=== PATIENT | male | born 1970 | race Caucasian/White ===

== ENCOUNTER 2017-02-28 00:26 | Emergency (ER) ==
[2017-02-28 00:32] VITALS: BP 137/88; TEMP 97.9; BMI 29.0
[2017-02-28] MEDS ORDERED: TYLENOL PO STA (00:48)
--- NOTE | 2017-02-28 00:51 | ED.PDOC ---
General ED Provider: Dr. STEPHANIE SANTAMARIA Chief Complaint: Cough Stated Complaint: Patient is a 46 year old male who has a history of mitral valve prolapse who comes to the ER with a one week history of cough, conjestion and feeling feverish. Took over the couter medications which has not helped. Admits to smoking 1 1/2 ppd. Time Seen by Physician: 00:35 Mode of Arrival: Walk-In Information Source: Patient Exam Limitations: No limitations Primary Care Provider: TL VALIENTE Nursing and Triage Documentation Reviewed and Agree: Yes Review of Systems - Review Of Systems Constitutional: Reports: Chills, Fever, Sweats Eyes: Reports: No symptoms Ears, Nose, Mouth, Throat: Reports: Nose discharge. Denies: Ear pain, Ear discharge, Nose pain, Epistaxis, Mouth pain, Loose teeth, Throat pain, Throat swelling Respiratory: Reports: Cough, Short of air Cardiac: Denies: Chest pain, Edema, Irregular heart rate, Lightheadedness, Palpitations, Syncope GI: Reports: No symptoms : Reports: No symptoms Musculoskeletal: Reports: No symptoms Skin: Reports: No symptoms Neurological: Reports: Anxiety Endocrine: Reports: Excessive sweating All Other Systems: Reviewed and Negative Past Medical History - Past Medical History Previously Healthy: Yes Endocrine: Reports: None Cardiovascular: Reports: Other (Mitral valve prolapse) Respiratory: Reports: None Hematological: Reports: None Gastrointestinal: Reports: None Genitourinary: Reports: None Neuro/Psych: Reports: None Musculoskeletal: Reports: Back Pain Cancer: Reports: None - Surgical History General Surgical History: Reports: None - Family History Family History: Reports: None - Social History Smoking Status: Current every day smoker Hx Substance Use: No Alcohol Screening: Occasionally - Immunizations Tetanus Shot up to Date: Yes Physical Exam - Physical Exam Appearance: Ill-appearing Ill-appearing: Moderate Pain Distress: Mild Eyes: SPEEDY, EOMI, Conjunctiva clear Neck: Supple Respiratory: Breath sounds diminished Cardiovascular: RRR, Pulses normal, No rub, No murmur Skin: Warm, Dry, Normal color Neurological: Sensation intact, Motor intact, Reflexes intact, Cranial nerves intact, Alert, Oriented Psychiatric: Anxious Interpretation - Radiology Interpretation Radiology Interpretation By: ED Physician Radiology Results: Negative Exam Interpreted: CXR Critical Care Note - Critical Care Note Total Time (mins): 0 Course - Course Hematology/Chemistry: 02/28/17 01:01 02/28/17 01:01 Orders, Labs, Meds: Lab Review 02/28/17 02/28/17 02/28/17 00:51 01:01 01:01 WBC 13.22 H RBC 4.79 Hgb 15.1 Hct 42.6 MCV 88.9 MCH 31.5 H MCHC 35.4 RDW Coeff of Velma 12.6 Plt Count 268 Immature Gran % (Auto) 1.1 Neut % (Auto) 53.4 Lymph % (Auto) 34.6 [place] % (Auto) 6.7 Eos % (Auto) 3.6 Baso % (Auto) 0.6 Immature Gran # (Auto) 0.2 Neut # 7.1 H Lymph # 4.6 H [place] # 0.9 Eos # 0.5 Baso # 0.1 Sodium 140 Potassium 4.0 Chloride 105 Carbon Dioxide 23 Anion Gap 16.0 BUN 13 Creatinine 0.98 Estimated GFR (MDRD) 82.00 BUN/Creatinine Ratio 13.26 Glucose 85 Calcium 9.7 Total Bilirubin 0.28 AST 23 ALT 34 Alkaline Phosphatase 85 Total Protein 7.1 Albumin 3.9 Globulin 3.2 Albumin/Globulin Ratio 1.22 Influenza A (Rapid) Negative Influenza B (Rapid) Negative Orders Category Date Time Status NEBULIZER TREATMENT Stat CARDIO 02/28/17 00:56 Completed CBC W/ AUTO DIFF Stat LAB 02/28/17 01:01 Completed COMPREHENSIVE METABOLIC PANEL Stat LAB 02/28/17 01:01 Completed FLU A & B RAPID TEST [RAPID FLU A/B] Stat LAB 02/28/17 00:51 Completed Acetaminophen [Tylenol] MEDS 02/28/17 00:48 Discontinued 650 mg PO ONCE STA Benzonatate [Tessalon Perles] MEDS 02/28/17 01:05 Discontinued 100 mg PO ONCE STA Ipratropium/Albuterol Neb [Duoneb] MEDS 02/28/17 00:55 Discontinued 1 vial NEB ONCE STA Methylprednisolone Sod Succ/Pf [Solu-Medrol 125 mg] MEDS 02/28/17 00:55 Discontinued 125 mg IM ONCE STA CHEST, 2 VIEWS PA & LAT Stat RADS 02/28/17 00:48 Completed Medications Discontinued Medications Generic Name Dose Route Start Last Admin Trade Name Freq PRN Reason Stop Dose Admin Acetaminophen 650 mg 02/28/17 00:48 02/28/17 01:05 Tylenol PO 02/28/17 00:49 650 mg ONCE STA Administration Albuterol/Ipratropium 1 vial 02/28/17 00:55 02/28/17 01:11 Duoneb NEB 02/28/17 00:56 1 vial ONCE STA Administration Benzonatate 100 mg 02/28/17 01:05 02/28/17 01:09 Tessalon Perles PO 02/28/17 01:06 100 mg ONCE STA Administration Methylprednisolone Sodium Succinate 125 mg 02/28/17 00:55 02/28/17 01:05 Solu-Medrol 125 Mg IM 02/28/17 00:56 Not Given ONCE STA Vital Signs: Temp Pulse Resp BP Pulse Ox 02/28/17 00:26 97.9 F 70 18 137/88 97 Departure - Departure Time of Disposition: 01:20 Disposition: HOME SELF-CARE Discharge Problem: URI (upper respiratory infection) Qualifiers: URI type: unspecified viral URI Qualified Code(s): J06.9 - Acute upper respiratory infection, unspecified Instructions: Viral Syndrome (ED) Condition: Fair Pt referred to PMD for follow-up: No Additional Instructions: Quit smoking Follow up with PCP in 3 days take medications as prescribed. Prescriptions: Albuterol Sulfate [Proair Hfa] 2 puff IH Q6H PRN #1 puff PRN Reason: shortness of breath Azithromycin [Zithromax] 250 mg PO DIRECTED #6 tablet Benzonatate [Tessalon Perles] 100 mg PO TID PRN #20 capsule PRN Reason: Cold Symptons Methylprednisolone [Medrol Dosepak] 4 mg PO DIRECTED #1 pkg Allergies/Adverse Reactions: Allergies codeine Adverse Reaction (Verified 02/28/17 00:34) Home Medications: Ambulatory Orders Albuterol Sulfate [Proair Hfa] 2 puff IH Q6H PRN #1 puff 02/28/17 Azithromycin [Zithromax] 250 mg PO DIRECTED #6 tablet 02/28/17 Benzonatate [Tessalon Perles] 100 mg PO TID PRN #20 capsule 02/28/17 Methylprednisolone [Medrol Dosepak] 4 mg PO DIRECTED #1 pkg 02/28/17 Disposition Discussed With: Patient, Family
[2017-02-28] MEDS ORDERED: DUONEB NEB STA (00:55)
[2017-02-28] MEDS ORDERED: SOLU-MEDROL 125 MG IM STA (00:55)
[2017-02-28 01:02] LABS: BASOPHILS # (AUTO) 0.1 K/uL (0-0.2); BASOPHILS % (AUTO) 0.6 % (0.0-3.0); EOSINOPHILS # (AUTO) 0.5 K/ul (0.0-0.7); EOSINOPHILS % (AUTO) 3.6 % (0.0-7.0); HEMATOCRIT 42.6 % (42.0-52.0); HEMOGLOBIN 15.1 g/dl (14.0-18.0); IMMATURE GRANULOCYTE % (AUTO) 1.1 % (0.0-5.0); LYMPHOCYTES # (AUTO) 4.6 K/uL (0.60-3.4); LYMPHOCYTES % (AUTO) 34.6 (10.0-50.0); MEAN CORPUSCULAR HEMOGLOBIN 31.5 pg (27.0-31.0); MEAN CORPUSCULAR HGB CONC 35.4 (31.8-35.4); MEAN CORPUSCULAR VOLUME 88.9 fl (80.0-94.0); MONOCYTES # (AUTO) 0.9 K/uL (0.4-2.0); MONOCYTES % (AUTO) 6.7 (0-10); NEUTROPHILS # (AUTO) 7.1 K/ul (2.0-6.9); NEUTROPHILS % (AUTO) 53.4; PLATELET COUNT 268 10^3/uL (140-440); RED BLOOD COUNT 4.79 10^6/ul (4.70-6.10); WHITE BLOOD COUNT 13.22 K/ul (4.2-10.2)
[2017-02-28] MEDS ORDERED: TESSALON PERLES PO STA (01:05)
--- NOTE | 2017-02-28 01:13 | DI ---
EXAM: Chest, two-view 02/28/2017 HISTORY: Cough COMPARISON: 06/03/2016 FINDINGS / IMPRESSION: Cardiomediastinal countours appear stable. There is no focal pulmonary conso lidation. No pleural effusion or pneumothorax. No acute cardiopulmonary process.
[2017-02-28 01:18] LABS: FLU INTERNAL QC INTERNAL QC VALID; RAPID FLU A NEGATIVE (NEGATIVE); RAPID FLU B NEGATIVE (NEGATIVE)
[2017-02-28 01:21] LABS: ALBUMIN 3.9 g/dL (3.4-5.0); ALBUMIN/GLOBULIN RATIO 1.22; BILIRUBIN,TOTAL 0.28 mg/dL (0.00-1.20); BUN/CREATININE RATIO 13.26; CALCIUM 9.7 mg/dL (8.2-10.2); CREATININE 0.98 mg/dL (0.60-1.10); TOTAL PROTEIN 7.1 g/dL (6.4-8.2)
== END 2017-02-28 01:23 | disposition home or self-care (01) ==
LOC: ED 00:26
DX: J06.9 Acute upper respiratory infection, unspecified (principal); F17.210 Nicotine dependence, cigarettes, uncomplicated
CPT/HCPCS: 36415; 80053; 85025; 87804; 94640; 99283

== ENCOUNTER 2017-05-02 12:46 | Outpatient (CLI) ==
[2017-05-02 12:58] LABS: BASOPHILS # (AUTO) 0.1 K/uL (0-0.2); BASOPHILS % (AUTO) 0.3 % (0.0-3.0); EOSINOPHILS # (AUTO) 0.3 K/ul (0.0-0.7); EOSINOPHILS % (AUTO) 2.2 % (0.0-7.0); HEMATOCRIT 43.6 % (42.0-52.0); HEMOGLOBIN 15.3 g/dl (14.0-18.0); IMMATURE GRANULOCYTE % (AUTO) 0.7 % (0.0-5.0); LYMPHOCYTES # (AUTO) 2.9 K/uL (0.60-3.4); LYMPHOCYTES % (AUTO) 19.4 (10.0-50.0); MEAN CORPUSCULAR HEMOGLOBIN 30.8 pg (27.0-31.0); MEAN CORPUSCULAR HGB CONC 35.1 (31.8-35.4); MEAN CORPUSCULAR VOLUME 87.9 fl (80.0-94.0); MONOCYTES # (AUTO) 0.9 K/uL (0.4-2.0); MONOCYTES % (AUTO) 6.3 (0-10); NEUTROPHILS # (AUTO) 10.4 K/ul (2.0-6.9); NEUTROPHILS % (AUTO) 71.1; PLATELET COUNT 236 10^3/uL (140-440); RED BLOOD COUNT 4.96 10^6/ul (4.70-6.10); WHITE BLOOD COUNT 14.69 K/ul (4.2-10.2)
[2017-05-02 13:36] LABS: ALBUMIN 3.6 g/dL (3.4-5.0); ALBUMIN/GLOBULIN RATIO 1.09; ANION GAP 12.8; BILIRUBIN,TOTAL 0.51 mg/dL (0.00-1.20); BUN/CREATININE RATIO 11.22; CREATININE 0.98 mg/dL (0.60-1.10); POTASSIUM 3.8 mmol/L (3.5-5.1); TOTAL PROTEIN 6.9 g/dL (6.4-8.2)
[2017-05-02 13:37] LABS: CHOL/HDL RATIO 9.3 (4.5-6.4)
--- NOTE | 2017-05-02 13:37 | CT ---
EXAM: CT cervical spine without contrast. HISTORY: Cervical radiculopathy COMPARISON: CT cervical spine 06/03/2017 TECHNIQUE: Serial axial images of the cervical spine were obtained from the skull base through the l connor apices without contrast. These were viewed in multiple planes. FINDINGS: Vertebral bodies demonstrate no acute compression fracture or subluxation. Facets and pos terior processes are unremarkable. The odontoid process is unremarkable. The C1 ring is intact. Th ere is no central or neural foraminal narrowing identified. The soft tissues are unremarkable with a pical emphysematous disease. IMPRESSION: 1. No acute compression fracture or subluxation. 2. There is no central or neural foraminal narrowing. If further evaluation is clinically indicated , MRI may be obtained. 3. Mild apical emphysematous disease.
== END 2017-05-02 12:47 | disposition home or self-care (01) ==
LOC: RAD 12:46
PROVIDERS: ATTEND Emergency Medicine
DX: M54.12 Radiculopathy, cervical region (principal); J06.9 Acute upper respiratory infection, unspecified
CPT/HCPCS: 36415; 80053; 80061; 84443; 85025

== ENCOUNTER 2017-05-03 12:38 | Outpatient (CLI) ==
--- NOTE | 2017-05-03 13:10 | DI ---
Exam: Two x-rays of the chest. Comparison: 02/28/2017. Reason for exam: Acute upper respiratory infection unspecified. FINDINGS: No pneumothorax, pleural effusion, or focal consolidation. The cardiac silhouette is not enlarged. The imaged osseous structures appear grossly unremarkable without acute fracture. Impression: No acute cardiopulmonary process.
--- NOTE | 2017-05-03 13:15 | CT ---
Exam: CT of the thoracic spine without intravenous contrast. Comparison: MRI performed on 06/14/2016. Reason for exam: Pain in thoracic spine. FINDINGS: No acute fracture or listhesis in the thoracic spine. Similar appearing minimal compressi on deformities are seen in the T3, T4, and T5 vertebral bodies not significantly changed from previou s imaging. There is a normal appearing thoracic kyphotic curve. Emphysematous changes are seen in th e lung parenchyma with an apical predominance. There is mild atelectasis in the partially imaged elizabeth g bases. Impression: 1. No acute fracture or listhesis in the thoracic spine. 2. Emphysematous disease.
== END 2017-05-03 12:39 | disposition home or self-care (01) ==
LOC: RAD 12:38
PROVIDERS: ATTEND Emergency Medicine
DX: J06.9 Acute upper respiratory infection, unspecified (principal); M54.6 Pain in thoracic spine; G89.29 Other chronic pain

== ENCOUNTER 2017-07-26 05:33 | Observation (INO) ==
[2017-07-26] MEDS ORDERED: ASPIRIN EC PO STA (06:24)
--- NOTE | 2017-07-26 06:24 | CT ---
EXAM: CT scan brain without contrast HISTORY: Facial numbness COMPARISON: CT scan brain 06/03/2016 FINDINGS: Contiguous axial images obtained from the skull base to the convexities without contrast u tilizing 5-mm collimation. Sagittal and coronal reconstructions were imaged and reviewed. The ventri cles and CSF spaces are within normal limits. There is no evidence of acute territorial infarction, intracranial hemorrhage or mass. No abnormal extra-axial fluid collections identified.. There is ch ronic deformity of the right lamina papyracea. IMPRESSION: No acute intracranial findings.
[2017-07-26] MEDS ORDERED: ASPIRIN EC ONE (06:25)
--- NOTE | 2017-07-26 06:26 | ED.PDOC ---
General Stated Complaint: my chest feels heavy and the left side of my face was numb-- its better now Time Seen by Physician: 05:40 Mode of Arrival: Walk-In Information Source: Patient Exam Limitations: No limitations Nursing and Triage Documentation Reviewed and Agree: Yes Reviewed sepsis parameters & appropriate labs ordered?: Yes System Inflammatory Response Syndrome: Not Applicable <MARIOMAGO - Last Filed: 07/26/17 06:59> <MAGO BALLESTEROS - Last Filed: 07/26/17 09:05> ED Provider: Dr. MAGO BALLESTEROS Chief Complaint: Chest Pain Primary Care Provider: TL VALIENTE Sepsis Protocol: For patient's 13 years and over: Temp is 96.8 and below OR 101 and greater Pulse >90 BPM Resp >20/minute Acutely Altered Mental Status Are patient's symptoms suggestive of a new infection, such as: -Pneumonia -Skin, Soft Tissue -Endocarditis -UTI -Bone, Joint Infection -Implantable Device -Acute Abdominal Infection -Wound Infection -Meningitis -Blood Stream Catheter Infection -Unknown Cardiovascular Complaint Exam - Chest Pain Complaint/Exam Onset: Sudden Duration: one hour Symptoms Are: Resolved Initial Severity: Mild Current Severity: Mild Location: Reports: Left anterior Character: Reports: Dull, Aching, Heaviness, Pressure Aggravating: Reports: None Alleviating: Reports: Spontaneous resolution Associated Signs and Symptoms: Reports: Dizziness History of Healthcare-Acquired Pneumonia: Reports: No AMI/ACS Risk Factors: Reports: Smoking, Dyslipidemia Prior Care for this Complaint: No Recent Stress Test: No Recent Echo/LV Function: No JVD Present: No Subcutaneous Emphysema Present: No Diminshed Breath Sounds: No Reproducible Chest Wall Pain: No Bilateral Pulses Present: Yes Unequal Pulses Noted: No If Risk Factors for PE Consider: Chest CT with contrast If Risk Factors for TAD Consider: Chest CT with contrast Care and Dx Studies Discussed With: Family Cement Side Laster Consulted: No Differential Diagnoses: Acute GA, ACS, Aortic Aneurysm, GI Diseasae, Pulmonary Embolism Quality Indicators For Acute GA or Cardiac Chest Pain: EKG in 10min., ASA if indicated Quality Indicator For Non-Traumatic Chest Pain/Syncope: EKG Performed <MAGO MARTIN - Last Filed: 07/26/17 06:59> Review of Systems - Review Of Systems Constitutional: Reports: No symptoms Eyes: Reports: No symptoms Ears, Nose, Mouth, Throat: Reports: No symptoms Respiratory: Reports: No symptoms Cardiac: Reports: Chest pain GI: Reports: No symptoms : Reports: No symptoms Musculoskeletal: Reports: No symptoms Skin: Reports: No symptoms Neurological: Reports: Numbness Endocrine: Reports: No symptoms Hematologic/Lymphatic: Reports: No symptoms All Other Systems: Reviewed and Negative <MAGO MARTIN Filed: 07/26/17 06:59> Past Medical History - Past Medical History Previously Healthy: Yes Endocrine: Reports: None Cardiovascular: Reports: Other (Mitral valve prolapse) Respiratory: Reports: None Hematological: Reports: None Gastrointestinal: Reports: None Genitourinary: Reports: None Neuro/Psych: Reports: None Musculoskeletal: Reports: Back Pain Cancer: Reports: None - Surgical History General Surgical History: Reports: None - Family History Family History: Reports: None - Social History Smoking Status: Current every day smoker, Heavy tobacco smoker Hx Substance Use: Yes (USES CANNIBUS) Alcohol Screening: Occasionally Lives: With family - Immunizations Tetanus Shot up to Date: Yes <MAGO MARTIN Filed: 07/26/17 06:59> Physical Exam - Physical Exam Appearance: Well-appearing, No pain distress, Well-nourished Pain Distress: Mild Eyes: SPEEDY, EOMI, Conjunctiva clear ENT: Ears normal, Nose normal, Oropharynx normal Neck: Supple Respiratory: Airway patent, Breath sounds clear, Breath sounds equal, Respirations nonlabored Cardiovascular: RRR GI/: Soft, Nontender, No masses, Bowel sounds normal, No Organomegaly Musculoskeletal: Normal strength Skin: Warm, Dry, Normal color Neurological: Sensation intact, Motor intact, Reflexes intact, Cranial nerves intact, Alert, Oriented Psychiatric: Affect appropriate, Mood appropriate, Anxious <MAGO MARTIN Last Filed: 07/26/17 06:59> Interpretation - EKG Interpretation Time of EKG #1: 05:35 Rate: Normal Rhythm: Sinus Ectopy: None, PVCs [place]: NL ST Segment: Normal Interpretation: sinus rythym with pvcs <MAGO MARTIN Last Filed: 07/26/17 06:59> Re-Evaluation - Re-Evaluation Time of Re-Evaluation: 08:10 (No further facial paresthesias) Status: Unchanged (Still feeling a fullness over entire anterior chest w/o radiation/ states has felt similar senstation after experiencing chest fluttering and palpitations in past.) Vital Signs Stable: Yes Pain Level: 3/10 Appearance: NAD Lungs: Clear Skin: Warm and Dry Neuro: Alert and Oriented X3 CV: Other (Monitor reveal NSR with multiple PVCs unifocal some bigemny) <MAGO BALLESTEROS - Last Filed: 07/26/17 09:05> Physician Notification - Case Discussed Physician Notified: dr ballesteros Time of Notification: 07:00 <MAGO MARTIN - Last Filed: 07/26/17 06:59> Course - Course Hematology/Chemistry: 07/26/17 05:45 07/26/17 05:49 <MAGO MARTIN - Last Filed: 07/26/17 06:59> - Course Hematology/Chemistry: 07/26/17 05:45 07/26/17 05:49 <MAGO BALLESTEROS - Last Filed: 07/26/17 09:05> - Course Orders, Labs, Meds: Lab Review 07/26/17 07/26/17 07/26/17 05:45 05:49 06:00 WBC 14.51 H RBC 4.93 Hgb 15.5 Hct 43.4 MCV 88.0 MCH 31.4 H MCHC 35.7 H RDW Coeff of Velma 12.3 Plt Count 250 Immature Gran % (Auto) 0.7 Neut % (Auto) 62.0 Lymph % (Auto) 26.7 [place] % (Auto) 6.8 Eos % (Auto) 3.2 Baso % (Auto) 0.6 Immature Gran # (Auto) 0.1 Neut # 9.0 H Lymph # 3.9 H [place] # 1.0 Eos # 0.5 Baso # 0.1 Sodium 140 Potassium 3.7 Chloride 105 Carbon Dioxide 22 Anion Gap 16.7 BUN 8 Creatinine 0.93 Estimated GFR (MDRD) 87.00 BUN/Creatinine Ratio 8.60 Glucose 89 Calcium 9.8 Total Bilirubin 0.4 AST 18 ALT 37 Alkaline Phosphatase 92 Troponin I < 0.0100 Total Protein 7.0 Albumin 3.8 Globulin 3.2 Albumin/Globulin Ratio 1.19 TSH 2.578 Free T4 0.89 Urine Color Urine Clarity Urine pH Ur Specific [place] Urine Protein Urine Glucose (UA) Urine Ketones Urine Blood Urine Nitrite Urine Bilirubin Urine Urobilinogen Ur Leukocyte Esterase Urine Opiates Screen Ur Oxycodone Screen Urine Methadone Screen Ur Propoxyphene Screen Ur Barbiturates Screen U Tricyclic Antidepress Ur Phencyclidine Scrn Ur Amphetamine Screen U Methamphetamines Scrn U Benzodiazepines Scrn Urine Cocaine Screen U Cannabinoids Screen Influenza A (Rapid) Negative by naat Influenza B (Rapid) Negative by naat 07/26/17 07/26/17 06:15 06:15 WBC RBC Hgb Hct MCV MCH MCHC RDW Coeff of Velma Plt Count Immature Gran % (Auto) Neut % (Auto) Lymph % (Auto) [place] % (Auto) Eos % (Auto) Baso % (Auto) Immature Gran # (Auto) Neut # Lymph # [place] # Eos # Baso # Sodium Potassium Chloride Carbon Dioxide Anion Gap BUN Creatinine Estimated GFR (MDRD) BUN/Creatinine Ratio Glucose Calcium Total Bilirubin AST ALT Alkaline Phosphatase Troponin I Total Protein Albumin Globulin Albumin/Globulin Ratio TSH Free T4 Urine Color Yellow Urine Clarity Clear Urine pH 5.5 Ur Specific [place] 1.010 Urine Protein Negative Urine Glucose (UA) Negative Urine Ketones Negative Urine Blood Negative Urine Nitrite Negative Urine Bilirubin Negative Urine Urobilinogen 0.2 Ur Leukocyte Esterase Negative Urine Opiates Screen Negative Ur Oxycodone Screen Negative Urine Methadone Screen Negative Ur Propoxyphene Screen Negative Ur Barbiturates Screen Negative U Tricyclic Antidepress Negative Ur Phencyclidine Scrn Negative Ur Amphetamine Screen Negative U Methamphetamines Scrn Negative U Benzodiazepines Scrn Negative Urine Cocaine Screen Negative U Cannabinoids Screen Positive Influenza A (Rapid) Influenza B (Rapid) Orders Category Date Time Status EKG-(ED ONLY) Stat CARDIO 07/26/17 05:51 Completed EKG-(ED ONLY) Stat CARDIO 07/26/17 08:07 Completed NPO REMINDER: IMAGING ONCE CARE 07/26/17 05:57 Completed Glucose [ED ACCUCHECK ASSESSMENT] .ONCE EMERGENCY 07/26/17 05:50 Active IV [ED IV/MEDIPORT/POWERPORT] .ONCE EMERGENCY 07/26/17 05:52 Active CBC W/ AUTO DIFF Stat LAB 07/26/17 05:45 Completed COMPREHENSIVE METABOLIC PANEL Stat LAB 07/26/17 05:49 Completed DRUG SCREEN, URINE, RAPID Stat LAB 07/26/17 06:15 Completed FLU A/B MOLECULAR Stat LAB 07/26/17 06:00 Completed FREE T4 (FREE THYROXINE) Stat LAB 07/26/17 05:49 Completed RAPID STREP SCREEN [MOLECULAR GROUP A STREP] Stat LAB 07/26/17 06:00 Completed THYROID STIMULATING HORMONE Stat LAB 07/26/17 05:49 Completed TROPONIN I Stat LAB 07/26/17 05:49 Completed TROPONIN I Stat LAB 07/26/17 08:30 Received URINALYSIS C & S IF INDICATED Stat LAB 07/26/17 06:15 Completed 0.9 % Sodium Chloride [Saline Flush] MEDS 07/26/17 05:52 Active 1 syr IVF PRN PRN Aspirin [Aspirin EC] MEDS 07/26/17 06:25 Discontinued 325 mg .ROUTE .STK-MED ONE Aspirin [Aspirin EC] MEDS 07/26/17 06:24 Discontinued 325 mg PO ONCE STA CT CHEST PE PROTOCOL Stat RADS 07/26/17 05:[address] HEAD W/O CONTRAST Stat RADS 07/26/17 05:56 Completed ULTRASOUND DOPPLER CAROTID [U/S DOPPLER CAROTID] Stat RADS 07/26/17 08:08 Ordered Medications Generic Name Dose Route Start Last Admin Trade Name Freq PRN Reason Stop Dose Admin Sodium Chloride 1 syr 07/26/17 05:52 Saline Flush IVF PRN PRN To flush IV Discontinued Medications Generic Name Dose Route Start Last Admin Trade Name Freq PRN Reason Stop Dose Admin Aspirin 325 mg 07/26/17 06:24 07/26/17 06:27 Aspirin Ec PO 07/26/17 06:25 325 mg ONCE STA Administration Vital Signs: Temp Pulse Resp BP Pulse Ox 07/26/17 06:29 68 16 131/81 96 07/26/17 05:34 96.9 F L 70 20 167/110 H 99 CARLOS Risk Score: Risk Score Odds of by 30D 0 0.1 (0.1-0.2) 1 0.3 (0.2-0.3) 2 0.4 (0.3-0.5) 3 0.7 (0.6-0.9) 4 1.2 (1.0-1.5) 5 2.2 (1.9-2.6) 6 3.0 (2.5-3.6) 7 4.8 (3.8-6.1) Departure <MAGO MARTIN - Last Filed: 07/26/17 06:59> <MAGO BALLESTEROS - Last Filed: 07/26/17 09:05> - Departure Allergies/Adverse Reactions: Allergies codeine Adverse Reaction (Verified 07/26/17 05:42) Itching Home Medications: Ambulatory Orders Albuterol Sulfate [Proair Hfa] 2 puff IH Q6H PRN #1 puff 02/28/17 <MAGO MARTIN - Last Filed: 07/26/17 06:59> <MAGO BALLESTEROS - Last Filed: 07/26/17 09:05> Additional Information: Assumed manangement of patient from Dr Marcus at 0705 hrs.Hx obtained and chart reviewed. Currently going to radiology for CTA of chest. Not experiencing further facial numbness. Describes as numbness across upper and lower lips into lt hemifacial region. Denies facial drooping or tongue involvement. No visual changes. . (MAGO BALLESTEROS)
--- NOTE | 2017-07-26 07:47 | CT ---
EXAM: CTA chest for PE HISTORY: Chest pain COMPARISON: Chest x-ray 05/03/[address] chest 06/03/2016 TECHNIQUE: CTA of the chest was performed from the lung apices to the upper abdomen after 100 ml of Omnipaque IV contrast was administered using PE protocol. 3-D imaging was also provided. FINDINGS: There is no filling defect in the pulmonary arteries to the level of the subsegmental pulm onary arteries. The heart is normal without signs of ventricular strain. The aorta is normal in roman earance with minimal atherosclerotic change. The heart is normal in size without pericardial effusio n. There is no mediastinal or hilar lymphadenopathy. The thyroid is normal. There is no pneumothorax or pleural effusion. There is moderate emphysematous disease. There is mil d bibasilar atelectasis. There is no consolidation, nodule or mass. The airways are patent. Limited views of the soft tissues in the upper abdomen are unremarkable. The osseous structures are unchanged with mild superior endplate deformity at T3, T4 and T5. There is a non displaced left post erior ninth and tenth rib fracture. IMPRESSION: 1. No pulmonary embolism. 2. Moderate emphysematous disease with mild bibasilar atelectasis. 3. Nondisplaced left posterior ninth and tenth rib fractures. 4. Minimal superior endplate deformity of T3, T4 and T5 vertebral bodies which have minimally worsen ed since 2016.
--- NOTE | 2017-07-26 09:29 | US ---
EXAM: Ultrasound bilateral carotid duplex. HISTORY: Facial numbness. COMPARISON: None available. TECHNIQUE: Multiple cr scale and color Doppler images were obtained. FINDINGS: Please note that estimates of internal carotid artery stenoses are based upon NASCET crite ted. Right carotid: No significant plaquing identified. Peak systolic velocity measurement in the right internal carotid artery is 0.7 meters per second. Right internal to common carotid artery peak systo lic velocity ratio measures 0.6. End diastolic velocity measurement in the right internal carotid ar марина is 0.3 meters per second. Flow in the right vertebral artery is antegrade. Left carotid: No significant plaquing identified. Peak systolic velocity measurement in the left in ternal carotid artery is 0.8 meters per second. Left internal to common carotid artery peak systolic velocity ratio measures 1.0. End diastolic velocity measurement in the left internal carotid artery measures 0.2 meters per second. Flow in the left vertebral artery is antegrade. The left external carotid artery is not well seen compared to the other side, although wave forms wer e obtained.. IMPRESSION: 1. No evidence for 50% or greater stenosis in the right or left internal carotid artery. 2. Antegrade flow in both vertebral arteries. 3. Poor visualization of the left external carotid artery which may be due to small caliber vessel a nd/or technical factors. Follow-up as warranted.
[2017-07-26] MEDS ORDERED: PROAIR HFA IH PRN (10:04)
[2017-07-26] MEDS ORDERED: NEURONTIN PO ONE (11:00)
[2017-07-26] MEDS ORDERED: ZANTAC PO PRN (11:00)
[2017-07-26] MEDS ORDERED: LIPITOR PO ONE (11:01)
[2017-07-26] MEDS ORDERED: MORPHINE 2 MG/ML SYRINGE IVP PRN (11:07)
[2017-07-26] MEDS ORDERED: ZOFRAN 4 MG/2 ML IVP PRN (11:07)
[2017-07-26 17:40] VITALS: BP 120/78; TEMP 97.9
[2017-07-26] MEDS ORDERED: NEURONTIN PO SCH (21:00)
[2017-07-27] MEDS ORDERED: LIPITOR PO SCH (09:00)
--- NOTE | 2017-08-01 08:32 | SSS ---
DATE OF SERVICE: 07/26/17 REASON FOR ADMISSION: Chest pain HISTORY OF PRESENT ILLNESS: This is a 46 year old male who came to the emergency today morning was not feeling yesterday. Woke up today morning and started having the pain to the left side of the chest with pressure and achy pain to the left arm and left jaw. Some tingling and numbness in the hands, headaches, nausea and dizziness. The patient came to the emergency room and was seen by Dr. Fuentes in the ER. Blood pressure 167/110, temperature 96.9. He has a history of mitral valves prolapse and COPD and Dyslipidemia. WBC with left shift with 14,000, sodium, potassium and first set of cardiac enzymes are negative. Urine negative. Toxicology screen was positive for the marijuana. Flu is negative. CT chest and head was negative. The patient also had a dizzy spell so Dr. Fuentes from ER did the carotid ultrasound and did not show any acute finding or significant blockage. At that time the patient was admitted to the hospital to rule out acute coronary syndrome. REVIEW OF SYSTEMS: CONSTITUTIONAL: No night sweats. No fatigue, malaise, lethargy. No fever or chills. HEENT: Eyes: No visual changes. No eye pain. No eye discharge. ENT: No runny nose. No epistaxis. No sinus pain. No sore throat. No odynophagia. No ear pain. No congestion. RESPIRATORY: No cough, no congestion. No hemoptysis. Shortness of breath. CARDIOVASCULAR: No angina symptoms. No CHF symptoms. No atypical chest pain for CAD. No palpitations. No orthopnea. Chest pain tingling left sided chest pain. GASTROINTESTINAL: No abdominal pain. No nausea or vomiting. No diarrhea or constipation. No hematemesis. No hematochezia. GENITOURINARY: No dysuria. No hematuria. No obstructive symptoms. No discharge. No pain. No significant abnormal bleeding. MUSCULOSKELETAL: No musculoskeletal pain. No joint swelling. NEUROLOGICAL: Awake, alert, oriented to time, place and person. No headache. No neck pain. No syncope. No seizures. No dizziness. PSYCHIATRIC: Anxious. Depression. No suicidal thoughts. No homicidal thoughts. SKIN: No rash. No lesions. No wounds. ENDOCRINE: No unexplained weight loss. No weight gain. HEMATOLOGIC/LYMPHATIC: No anemia. No purpura. No petechiae. No prolonged or excessive bleeding. No palpable lymph nodes. PAST HISTORY: Dyslipidemia Hypertension COPD History of mitral valve prolapse History of headaches GERD Back and rib fractures in 2016 PERSONAL/FAMILY HISTORY/SOCIAL HISTORY: The patient is . Substance use of cannabis. Family history is significant for the cardiac disorder and cancer. PHYSICAL EXAMINATION: VITAL SIGNS: Blood pressure 122/72, respiratory rate 18, heart rate 65, temperature 97.7 and saturation 95%. HEENT: Head normocephalic, atraumatic. Eyes: Extraocular muscles are intact. Pupils are equal, round and reactive to light and accommodation. Ears: No lesions. Nose appeared normal. Throat: No exudate or erythema. Mucosa Dry. NECK: Supple. No JVD, no carotid bruit. No lymphadenopathy or thyromegaly. LUNGS: Clear to auscultation. Percussion note normal. Chest symmetrical. HEART: S1, S2, no S3. No murmurs. No cyanosis or clubbing. No ascites. Pulses: Dorsalis pedis and posterior tibial pulses +1 to +2 both sides. ABDOMEN: Soft. Nontender. Bowel sounds active. No CVA tenderness. No mass felt. EXTREMITIES: No edema. Full range of motion of all extremities, equal. NEUROLOGIC: No focal deficit. Cranial nerves II through XII are grossly intact. No headache, no double vision or headache. SKIN: Not dry. Intact. Turgor - normal. LYMPHATIC: No palpable lymph nodes/no lymphedema. MUSCULOSKELETAL: Normal joints with no swelling. Muscle tone is normal. ALLERGIES: Codeine MEDICATIONS: Albuterol Gabapentin Atorvastatin Zantac LABS/EKG'S/X-RAY/ECHO/ABG: WBC 14.51, hgb 15.5, hct 43.4, plt count 250, sodium 140, potassium 3.7, chloride 105, bicarb 22, BUN 8, creatinine 0.97 and Glucose 98. Two sets of the cardiac enzymes are negative. EKG normal sinus rhythm with some PVC's. PROGRESS NOTES: See EMR. BRIEF HOSPITAL COURSE: The patient was admitted to the hospital second set of cardiac enzymes are negative. By evening time the patient was feeling better. He decided to go against the medical advise. I came personally and talked to the patient. The patient said that he would like to get a stress test and echocardiogram as an outpatient as our plan was to do that. He promised that he would be coming to the office and getting tested. As the patient is reliable and he always to the [facility] I did allow him to go. DIAGNOSES: 1. Chest pain rule out ACS, will be doing outpatient evaluate. 2. Hypertension 3. Dyslipidemia 4. Depression 5. Anxiety RECOMMENDATIONS/PLAN: 1. Stress and echocardiogram outpatient 2. Lifestyle modification and weight loss 3. Diet control 4. Followup with [facility] 5. The patient's partner was in the room when we are discussing and he promised to get the patient to the office. TIME SPENT: More than 70 minutes. SPENCER
== END 2017-07-26 19:28 | disposition home or self-care (01) ==
LOC: ED 05:33 → INTOOBSV 09:21 → SCU 09:21
PROVIDERS: ADMIT Emergency Medicine; ATTEND Emergency Medicine
DX: R07.89 Other chest pain (principal); R68.84 Jaw pain; R20.0 Anesthesia of skin; R51 Headache; R42 Dizziness and giddiness; I10 Essential (primary) hypertension; I34.1 Nonrheumatic mitral (valve) prolapse; F12.90 Cannabis use, unspecified, uncomplicated; F17.210 Nicotine dependence, cigarettes, uncomplicated; F41.8 Other specified anxiety disorders; Z82.49 Family history of ischemic heart disease and other diseases of the circulatory system
CPT/HCPCS: 36415; 80053; 80306; 81001; 82962; 84439; 84443; 84484; 85025; 87502; 87651; 93005; 93010; 99284

== ENCOUNTER 2017-09-10 12:59 | Outpatient (CLI) ==
--- NOTE | 2017-09-10 21:53 | MRI ---
EXAM: Thoracic spine MRI without contrast. HISTORY: Neck pain. COMPARISON: Thoracic spine CT scan 05/03/2017 and thoracic spine MRI 06/14/2016. TECHNIQUE: Multiplanar, multisequence MR images were acquired of the thoracic spine without contrast . FINDINGS: Compared to the prior MRI, the small syrinx from T2-T9 is less apparent which may reflect differences in technique or improvement. This is largest at the T8 and upper T9 levels where it vanessa ures 2.5 mm x 1.5 mm. There are no paravertebral masses. 12 rib-bearing thoracic vertebra are present. There is mild accen tuation of the usual thoracic kyphosis in the upper thoracic spine centered at T4 and there is minor mid thoracic dextroscoliosis centered at T7-8. There is a small thoracic cord syrinx that is best de monstrated on the coronal T2W sequence which is less apparent than previously. Conus medullaris ends at T12-L1. There is mild chronic anterior wedging of the T4 and T5 vertebra with irregular concavit y of the superior end plates and chronic Schmorl's nodes and there is minor chronic anterior wedging of T3 with concavity of the superior endplate and a small chronic Schmorl's node. These are located at the sites of the previously seen acute fractures on the 06/14/2016 thoracic spine MRI. No acute c ompression fractures are present. Intrinsic bone marrow signal is normal. There is desiccation of t he intervertebral discs from T2-3 through T4-5 and from T6-7 to T8-9. A benign intraosseous hemangio ma is present at T5. Canal diameter is developmentally normal. However, there is prominent dorsal e pidural lipomatosis from T3 to T8-9. There are no paravertebral masses. The partially visualized liver, spleen and kidneys are unremarkab le. T1-2, T2-3: The intervertebral discs are normal. There is mild right facet hypertrophy without fora elian stenosis. T3-4: There is a minor posterior disc bulge and right facet hypertrophy which causes mild right neur al foraminal stenosis. T4-5: There is a small central disc protrusion that minimally indents the thoracic cord without cent ral canal stenosis. Right facet hypertrophy is present and there is mild right foraminal stenosis. T5-6: The intervertebral disc is normal. T6-7: There is a minor disc bulge and small central disc protrusion that minimally indents the cervi laura cord. There is no central canal stenosis or foraminal stenosis. T7-8: There is a small to moderate left paracentral disc protrusion that indents the left thoracic c ord. Bilateral facet hypertrophy is present and there is mild to moderate bilateral foraminal stenos is. T8-9: There is a small central disc protrusion which slightly indents the left ventral cord. There is no central canal stenosis or foraminal stenosis. T9-10: The intervertebral disc is normal. Right facet hypertrophy is present and there is minor brandi ateral foraminal stenosis. T10-11: The intervertebral disc is normal. Left facet hypertrophy is present without foraminal sten osis. T11-12, T12-L1: The intervertebral discs are normal. IMPRESSION: 1. 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 The syrinx is small and less well seen than previously which may be due to differences in technique or improvement. The syrinx measures a maximum of 2.5 mm x 1.5 mm at T8 and T9. 2. Mild chronic anterior wedge compression deformities T4 and T5 and minor chronic anterior wedging T3 with concavity of the superior endplate. Degree of compression is stable compared to the prior MR I. 3. No acute compression fractures. 4. No change small disc herniations T4-5, T6-7 and T8-9 and small to moderate disc protrusion, disc herniation T7-8.
== END 2017-09-10 13:00 | disposition home or self-care (01) ==
LOC: RAD 12:59
PROVIDERS: ATTEND Neurological Surgery
DX: M54.40 Lumbago with sciatica, unspecified side (principal)

== ENCOUNTER 2017-09-11 13:05 | Outpatient (CLI) ==
--- NOTE | 2017-09-11 15:16 | MRI ---
EXAM: MRI lumbar spine without IV contrast. DATE: 11 September 2017. HISTORY: Low back pain with sciatica. TECHNIQUE: Sagittal and axial T1W and T2W sequences of the lumbar spine along with sagittal IR and c oronal T2W sequences were obtained using 1.2 Trinity magnet. No IV contrast. COMPARISON: MRI L-spine 06/30/2016. MRI T-spine 10 September 2017. FINDINGS: There are five [id number] lumbar vertebra. Minor leftward curvature of the lumbar sp ine (3 degrees) is observed. No acute lumbar fracture, subluxation, osseous malignancy, or pars inte rarticularis defect is demonstrated. Lumbar vertebra are normal in height. Bone marrow signal is no rmal. Small/moderate osteophytes are redemonstrated at several lumbar levels. Disc desiccation with out disc space narrowing is seen at L2-3. Mild disc space narrowing is detected at L3-4. No acute s acral fracture or stress reaction is identified. SI joints are unremarkable. Conus medullaris termi nates at T12-L1. Visible spinal cord is normal. No retroperitoneal lymphadenopathy, paraspinal mass, or aortic aneurysm is detected. Paraspinal musc ulature is symmetric bilaterally. Visible portions of the liver, gallbladder, spleen, adrenal glands , and kidneys are normal. A number of descending colon and sigmoid colon diverticuli are demonstrate d. Segmental analysis: T12-L1: Normal. L1-2: Normal. L2-3: Minor concentric disc bulge (with left foraminal annular fissure) and minor facet arthropathy cause triangulation of the canal, minimal right foraminal narrowing, and mild/moderate left foraminal stenosis. Left L2 nerve root appears to contact the disc bulge just lateral to the foramen. L3-4: Minor concentric disc bulge causes minor right and mild/moderate left foraminal stenosis. Lef t L3 nerve root contacts the disc bulge near the lateral margin of the foramen. No central canal alfonso nosis. L4-5: Minor posterior disc bulge causes slight bilateral foraminal encroachment. No nerve compressi on. No central canal stenosis. L5-S1: Normal IMPRESSIONS: 1. Lumbar spine mild spondylosis, minor leftward curvature, and multilevel minor/mild DDD - - simila r to June 2016. 2. Multilevel foraminal narrowing, especially left L2-3 and L3-4 foramen. Left L2 and left L3 nerve roots contact the disc bulges near the foramen, and could be sources for pain/radiculopathy. 3. Triangulation of the canal at L2-3. 4. Descending/sigmoid colon diverticulosis.
== END 2017-09-11 13:06 | disposition home or self-care (01) ==
LOC: RAD 13:05
PROVIDERS: ATTEND Neurological Surgery
DX: M54.40 Lumbago with sciatica, unspecified side (principal)

== ENCOUNTER 2017-11-08 16:02 | Outpatient (CLI) ==
--- NOTE | 2017-11-08 16:37 | US ---
EXAM: Right lower extremity venous Doppler History: Right leg pain. Technique: Multiple sonographic images through the right lower extremity were obtained. Color duple x Doppler was used to interrogate vascular flow. Findings: The right common femoral, greater saphenous, profunda, superficial femoral, popliteal, per elizalde, posterior tibial and anterior tibial veins demonstrate spontaneous flow with normal compressio n and normal augmentation. Impression: No sonographic evidence for deep venous thrombosis
== END 2017-11-08 16:03 | disposition home or self-care (01) ==
LOC: RAD 16:02
PROVIDERS: ATTEND Emergency Medicine
DX: M79.661 Pain in right lower leg (principal)

== ENCOUNTER 2018-03-26 13:01 | Outpatient (CLI) ==
--- NOTE | 2018-03-26 16:36 | CT ---
EXAM: CT Head HISTORY: Headache COMPARISON: 07/26/2017 TECHNIQUE: CT head performed without contrast FINDINGS: There is no mass effect, midline shift, or intracranial hemmorhage. Clarke white differenti ation is preserved. There is no extra-axial collection. The ventricles, sulci, and basal cisterns a re patent and symmetric. There is no depressed calvarial fracture. The mastoid air cells are clear. The visualized paranasal sinuses are clear. IMPRESSION: No acute intracranial abnormality.
== END 2018-03-26 13:02 | disposition home or self-care (01) ==
LOC: RAD 13:01
PROVIDERS: ATTEND Physician Assistant
DX: R51 Headache (principal)

== ENCOUNTER 2018-04-10 15:33 | Emergency (ER) ==
[2018-04-10 15:45] VITALS: BP 124/82; TEMP 98.1; BMI 30.7
--- NOTE | 2018-04-10 16:34 | ED.PDOC ---
General ED Provider: Dr. SHONA LOPEZ Chief Complaint: Back Pain Stated Complaint: back pain lumbar Time Seen by Physician: 15:40 (seen with roel) Mode of Arrival: Walk-In Information Source: Patient Exam Limitations: No limitations Primary Care Provider: KHALIDA SHAH Nursing and Triage Documentation Reviewed and Agree: Yes Does patient meet sepsis criteria?: No System Inflammatory Response Syndrome: Not Applicable Sepsis Protocol: For patient's 13 years and over: Temp is 96.8 and below OR 101 and greater Pulse >90 BPM Resp >20/minute Acutely Altered Mental Status Are patient's symptoms suggestive of a new infection, such as: -Pneumonia -Skin, Soft Tissue -Endocarditis -UTI -Bone, Joint Infection -Implantable Device -Acute Abdominal Infection -Wound Infection -Meningitis -Blood Stream Catheter Infection -Unknown Musculoskeletal Complaint Exam - Back Pain Complaint/Exam Mechanism of Injury: Reports: No known trauma Onset/Duration: 1 day Symptoms Are: Still present Timing: Intermittent Episodes Lasting: Hours Initial Severity: Moderate Current Severity: Mild Location: Reports: Discrete Character: Reports: Aching Aggravating: Reports: Movements, Lifting, Bending, Walking Alleviating: Reports: Rest, Position Associated Signs and Symptoms: Denies: Swelling, Redness, Bruising, Fever, Weakness, Numbness, Tingling, Abdominal pain, Flank pain, Bladder incontinence, Bowel incontinence, Weight loss, Pain with weight bearing Related History: Reports: Similar episode TAD Risk Factors: Reports: None AAA Risk Factors: Reports: None Cauda Equina Risk Factors: Reports: None Epidural Abcess Risk Factors: Reports: None Related Surgical History: Reports: None Focal Tenderness: No Paraspinal Muscle Tenderness: No Paraspinal Muscle Spasm: No Scoliosis: No Lordosis: No Kyphosis: No SLR Test: Right Negative, Left Negative Hip Motion Testing Pain: Right Negative, Left Negative Focal Weakness: Present: None Focal Sensory Loss: Present: None Gait: Present: Normal Differential Diagnoses: Strain, Sprain Review of Systems - Review Of Systems Constitutional: Reports: No symptoms Eyes: Reports: No symptoms Ears, Nose, Mouth, Throat: Reports: No symptoms Respiratory: Reports: No symptoms Cardiac: Reports: No symptoms GI: Reports: No symptoms : Reports: No symptoms Musculoskeletal: Reports: Back pain Skin: Reports: No symptoms Neurological: Reports: No symptoms Endocrine: Reports: No symptoms Hematologic/Lymphatic: Reports: No symptoms All Other Systems: Reviewed and Negative Past Medical History - Past Medical History Previously Healthy: Yes Endocrine: Reports: None Cardiovascular: Reports: Other (Mitral valve prolapse) Respiratory: Reports: None Hematological: Reports: None Gastrointestinal: Reports: None Genitourinary: Reports: None Neuro/Psych: Reports: None Musculoskeletal: Reports: Back Pain Cancer: Reports: None - Surgical History General Surgical History: Reports: None - Family History Family History: Reports: None - Social History Smoking Status: Current every day smoker, Heavy tobacco smoker Hx Substance Use: Yes (USES CANNIBUS) Alcohol Screening: Occasionally Physical Exam - Physical Exam Appearance: Well-appearing, No pain distress, Well-nourished Eyes: SPEEDY, EOMI, Conjunctiva clear ENT: Ears normal, Nose normal, Oropharynx normal Respiratory: Airway patent, Breath sounds clear, Breath sounds equal, Respirations nonlabored Cardiovascular: RRR, Pulses normal, No rub, No murmur GI/: Soft, Nontender, No masses, Bowel sounds normal, No Organomegaly Musculoskeletal: Normal strength, ROM intact, No edema, No calf tenderness Skin: Warm, Dry, Normal color Neurological: Sensation intact, Motor intact, Reflexes intact, Cranial nerves intact, Alert, Oriented Psychiatric: Affect appropriate, Mood appropriate Critical Care Note - Critical Care Note Total Time (mins): 0 Course - Course Vital Signs: Temp Pulse Resp BP Pulse Ox 04/10/18 15:36 98.1 F 78 20 124/82 97 Departure - Departure Time of Disposition: 16:34 Disposition: HOME SELF-CARE Discharge Problem: Low back pain Qualifiers: Chronicity: unspecified Back pain laterality: midline Instructions: Sciatica (ED), Lumbar Radiculopathy (ED), Acute Low Back Pain (ED ) Condition: Pt referred to PMD for follow-up: Yes IPMP verified?: No Additional Instructions: Please call your Family Physician as soon as possible to schedule a follow-up appointment. Allergies/Adverse Reactions: Allergies codeine Adverse Reaction (Verified 04/10/18 15:45) Itching Home Medications: Ambulatory Orders Albuterol Sulfate [Proair Hfa] 2 puff IH Q6H PRN #1 puff 02/28/17 Ranitidine HCl [Zantac] 150 mg PO QDAC PRN 07/26/17
== END 2018-04-10 16:52 | disposition home or self-care (01) ==
LOC: ED 15:33
DX: M54.5 Low back pain (principal); F17.210 Nicotine dependence, cigarettes, uncomplicated
CPT/HCPCS: 99282

== ENCOUNTER 2018-07-29 19:50 | Emergency (ER) | payer MEDICAID, OTHER ==
[2018-07-29 20:03] VITALS: BP 120/79; TEMP 98.9; BMI 27.9
--- NOTE | 2018-07-29 20:18 | DI ---
EXAM: Two-view chest HISTORY: Cough TECHNIQUE: Frontal and lateral views of the chest were obtained. Comparison 05/03/2017. FINDINGS: The heart is normal size. Lungs are clear. The pulmonary vasculature appears normal. Th e costophrenic angles are sharp. The osseous structures and mediastinal contours are normal. IMPRESSION: No active cardiopulmonary disease.
--- NOTE | 2018-07-29 20:26 | ED.PDOC ---
General ED Provider: Dr. MAGO BURCH-ER Chief Complaint: Respiratory Complaint Stated Complaint: venus got sinus drainage and i twisted my back Time Seen by Physician: 19:55 Mode of Arrival: Walk-In Information Source: Patient Exam Limitations: No limitations Primary Care Provider: KHALIDA SHAH Nursing and Triage Documentation Reviewed and Agree: Yes Does patient meet sepsis criteria?: No System Inflammatory Response Syndrome: Not Applicable Sepsis Protocol: For patient's 13 years and over: Temp is 96.8 and below OR 101 and greater Pulse >90 BPM Resp >20/minute Acutely Altered Mental Status Are patient's symptoms suggestive of a new infection, such as: -Pneumonia -Skin, Soft Tissue -Endocarditis -UTI -Bone, Joint Infection -Implantable Device -Acute Abdominal Infection -Wound Infection -Meningitis -Blood Stream Catheter Infection -Unknown Respiratory Complaint Exam - Respiratory Complaint/Exam Onset/Duration: 3 dasy Symptoms Are: Still present Timing: Intermittent Initial Severity: Mild Current Severity: Mild Location: Nose, Chest Character: Reports: Non-productive cough Aggravating: Reports: URI Associated Signs and Symptoms: Reports: Fever, URI, Nasal congestion, Sinus discomfort, Sore throat. Denies: Rapid breathing, Dyspnea Recent Stress Test: No Current Antibiotic Use: No Current Asthma Medication Use: No Respiratory Distress: None Inadequate Respiratory Effort: No Dysphagia Present: No Stridor Present: No JVD Present: No Accessory Muscle Use: No Review of Systems - Review Of Systems Constitutional: Reports: Fever Eyes: Reports: No symptoms Ears, Nose, Mouth, Throat: Reports: Nose discharge, Throat pain Respiratory: Reports: Cough Cardiac: Reports: No symptoms GI: Reports: No symptoms : Reports: No symptoms Musculoskeletal: Reports: No symptoms Skin: Reports: No symptoms, Dryness Neurological: Reports: No symptoms Endocrine: Reports: No symptoms Hematologic/Lymphatic: Reports: No symptoms All Other Systems: Reviewed and Negative Past Medical History - Past Medical History Previously Healthy: Yes Endocrine: Reports: None Cardiovascular: Reports: Other (Mitral valve prolapse) Respiratory: Reports: None Hematological: Reports: None Gastrointestinal: Reports: None Genitourinary: Reports: None Neuro/Psych: Reports: None Musculoskeletal: Reports: Back Pain Cancer: Reports: None - Surgical History General Surgical History: Reports: None - Family History Family History: Reports: None - Social History Smoking Status: Current every day smoker Hx Substance Use: Yes (MJ) Alcohol Screening: None - Immunizations Tetanus Shot up to Date: No Physical Exam - Physical Exam Appearance: Well-appearing Eyes: SPEEDY, EOMI, Conjunctiva clear ENT: Rhinorrhea Respiratory: Airway patent, Breath sounds clear, Breath sounds equal, Respirations nonlabored Cardiovascular: RRR, Pulses normal, No rub, No murmur GI/: Soft, Nontender, No masses, Bowel sounds normal, No Organomegaly Musculoskeletal: Normal strength, ROM intact, No edema, No calf tenderness Skin: Warm Neurological: Sensation intact Psychiatric: Affect appropriate Interpretation - Radiology Interpretation Radiology Interpretation By: Radiologist Radiology Results: Negative Exam Interpreted: CXR Critical Care Note - Critical Care Note Total Time (mins): 0 Course - Course Orders, Labs, Meds: Lab Review 07/29/18 20:00 Influ A Molecular Assay Negative by naat Influ B Molecular Assay Negative by naat Orders Category Date Time Status FLU A/B MOLECULAR Stat LAB 07/29/18 20:00 Completed CXR [CHEST, 2 VIEWS PA & LAT] Stat RADS 07/29/18 19:52 Completed Vital Signs: Temp Pulse Resp BP Pulse Ox 07/29/18 19:51 98.9 F 74 16 120/79 98 Departure - Departure Time of Disposition: 20:26 Disposition: PLACED OBSERVATION Discharge Problem: Sinusitis Qualifiers: Sinusitis location: unspecified location Chronicity: acute Recurrence: not specified as recurrent Qualified Code(s): J01.90 - Acute sinusitis, unspecified Low back pain Qualifiers: Chronicity: acute Back pain laterality: unspecified Sciatica presence: without sciatica Qualified Code(s): M54.5 - Low back pain Instructions: Rhinosinusitis (ED) Condition: Good Pt referred to PMD for follow-up: Yes IPMP verified?: No Additional Instructions: augmentin 875mg bid x 10 dyas---percocet 5mg q 6hrs prn pain #10---f/u khalida courtney Allergies/Adverse Reactions: Allergies codeine Adverse Reaction (Verified 07/29/18 20:00) Itching Home Medications: Ambulatory Orders Albuterol Sulfate [Proair Hfa] 2 puff IH Q6H PRN #1 puff 02/28/17 Ranitidine HCl [Zantac] 150 mg PO QDAC PRN 07/26/17 Finasteride 1 mg PO DAILY 07/29/18 Disposition Discussed With: Patient, Family
== END 2018-07-29 20:29 | disposition home or self-care (01) ==
LOC: ED 19:50
DX: J01.90 Acute sinusitis, unspecified (principal); M54.5 Low back pain; X50.1XXA Overexertion from prolonged static or awkward postures, initial encounter; F17.210 Nicotine dependence, cigarettes, uncomplicated
CPT/HCPCS: 87502; 99283

== ENCOUNTER 2019-01-10 17:24 | Emergency (ER) | payer OTHER, MEDICAID ==
[2019-01-10 17:27] VITALS: BP 146/97; TEMP 97.9; BMI 25.8
--- NOTE | 2019-01-10 18:37 | ED.PDOC ---
General ED Provider: Dr. MAGO BURCH-ER Chief Complaint: Extremity Pain/Injury Stated Complaint: i have a pinched nerve---its going from the neck down the left shoulder and arm Time Seen by Physician: 17:30 Mode of Arrival: Walk-In Information Source: Patient Exam Limitations: No limitations Primary Care Provider: KHALIDA SHAH Nursing and Triage Documentation Reviewed and Agree: Yes Does patient meet sepsis criteria?: No System Inflammatory Response Syndrome: Not Applicable Sepsis Protocol: For patient's 13 years and over: Temp is 96.8 and below OR 101 and greater Pulse >90 BPM Resp >20/minute Acutely Altered Mental Status Are patient's symptoms suggestive of a new infection, such as: -Pneumonia -Skin, Soft Tissue -Endocarditis -UTI -Bone, Joint Infection -Implantable Device -Acute Abdominal Infection -Wound Infection -Meningitis -Blood Stream Catheter Infection -Unknown Musculoskeletal Complaint Exam - Neck Pain Complaint/Exam Mechanism of Injury: Reports: No known trauma Onset/Duration: several weeks Symptoms Are: Still present Timing: Constant Initial Severity: Mild Current Severity: Moderate Location: Reports: Discrete Character: Reports: Dull, Aching Aggravating: Reports: Position, Movement Alleviating: Reports: None Associated Signs and Symptoms: Reports: Paresthesia Meningitis Risk Factors: Reports: None Cervical Spine Injury Risk Factors: Reports: None Carotid Bruit Present: No Pain on Passive Flexion: No Positive Kernig's Sign: No ROM Limited In: Present: Flexion, Extension Pain Located at: left neck into left shoulder and arm Tenderness: Present: Paraspinal Radiates to: Present: Left arm Focal Weakness: Present: None Focal Sensory Loss: Reports: None Differential Diagnoses: Other Review of Systems - Review Of Systems Constitutional: Reports: No symptoms Eyes: Reports: No symptoms Ears, Nose, Mouth, Throat: Reports: No symptoms Respiratory: Reports: No symptoms Cardiac: Reports: No symptoms GI: Reports: No symptoms : Reports: No symptoms Musculoskeletal: Reports: Muscle pain, Neck pain Skin: Reports: No symptoms Neurological: Reports: No symptoms Endocrine: Reports: No symptoms Hematologic/Lymphatic: Reports: No symptoms All Other Systems: Reviewed and Negative Past Medical History - Past Medical History Previously Healthy: Yes Endocrine: Reports: None Cardiovascular: Reports: Other (Mitral valve prolapse) Respiratory: Reports: None Hematological: Reports: None Gastrointestinal: Reports: None Genitourinary: Reports: None Neuro/Psych: Reports: None Musculoskeletal: Reports: Back Pain Cancer: Reports: None - Surgical History General Surgical History: Reports: None - Family History Family History: Reports: None - Social History Smoking Status: Current every day smoker, Heavy tobacco smoker Hx Substance Use: Yes (USES CANNIBIS) Alcohol Screening: Occasionally Physical Exam - Physical Exam Appearance: Well-appearing, No pain distress, Well-nourished Pain Distress: Mild Eyes: SPEEDY, EOMI, Conjunctiva clear ENT: Ears normal, Nose normal, Oropharynx normal Neck: Supple Respiratory: Airway patent, Breath sounds clear, Breath sounds equal, Respirations nonlabored Cardiovascular: RRR, Pulses normal, No rub, No murmur GI/: Soft, Nontender, No masses, Bowel sounds normal, No Organomegaly Musculoskeletal: Limited ROM Skin: Warm, Dry, Normal color Neurological: Sensation intact, Motor intact, Reflexes intact, Cranial nerves intact, Alert, Oriented Psychiatric: Affect appropriate, Mood appropriate Critical Care Note - Critical Care Note Total Time (mins): 0 Course - Course Vital Signs: Temp Pulse Resp BP Pulse Ox 01/10/19 17:24 97.9 F 76 18 146/97 H 97 he denies any cp or dyspnea ---no symptoms of anginal or nausea Departure - Departure Time of Disposition: 18:37 Disposition: HOME SELF-CARE Discharge Problem: Cervical radiculopathy Instructions: Cervical Radiculopathy (ED) Condition: Good Pt referred to PMD for follow-up: Yes IPMP verified?: No Additional Instructions: keep appt with ortho Allergies/Adverse Reactions: Allergies codeine Adverse Reaction (Verified 01/10/19 17:28) Itching Home Medications: Ambulatory Orders Ranitidine HCl [Zantac] 150 mg PO QDAC PRN 07/26/17 Medical Marijuana 12/31/18 Disposition Discussed With: Patient
== END 2019-01-10 18:46 | disposition home or self-care (01) ==
LOC: ED 17:24
DX: M54.12 Radiculopathy, cervical region (principal); F17.210 Nicotine dependence, cigarettes, uncomplicated
CPT/HCPCS: 99282